=== PATIENT | male | born 1995 | race Caucasian/White ===

== ENCOUNTER 2021-04-21 14:06 | Emergency (ER) | payer BC, SELFPAY ==
--- NOTE | ~2021-04-21 | XR_ITS ---
EXAMINATION: XR chest 1V portable DATE: 04/21/2021 14:32 INDICATION: Cough and shortness of breath TECHNIQUE: frontal view of the chest was obtained. COMPARISON: None FINDINGS: The lungs are clear with no focal airspace opacities, pulmonary edema, pleural effusion or pneumothor ax. The cardiomediastinal silhouette is normal. Visualized bones and soft tissues are unremarkable. IMPRESSION: 1. No acute cardiopulmonary disease. Reviewed, dictated and finalized at location [facility]. [facility]
[2021-04-21 14:09] VITALS: BP 134/76; PULSE 78; RESP 18; TEMP 37.1; O2SAT 100
[2021-04-21 14:31] LABS: Basophils Percent Auto 0.9 % (0.2-1.2); Eosinophils Percent Auto 0.5 % (0-4.4); Hematocrit 47.9 % (42.0-52.0); Hemoglobin 16.1 g/dL (14.0-18.0); Immature Granulocyte Absolute 0.02 K/mm3 (0.00-0.031); Immature Granulocyte Percent A 0.5 % (0-0.5); Lymphocytes Absolute Auto 0.85 K/mm3 (0.9-3.2); Lymphocytes Percent Auto 20.1 % (18.3-44.2); Mean Corpuscular HGB Conc 33.6 g/dl (32-36); Mean Corpuscular Hemoglobin 30.4 pg (26-34); Mean Corpuscular Volume 90.5 fl (80-100); Mean Platelet Volume 9.7 fl (7.4-10.4); Neutrophils Absolute Auto 2.3 K/mm3 (1.3-6.7); Platelet Count Result 188 k/mm3 (150-375); Red Blood Count 5.29 M/mm3 (4.6-6.20); Red Cell Distribution Width 12.7 % (11.5-14.5); White Blood Count 4.2 K/mm3 (4.5-10.0)
--- NOTE | 2021-04-21 15:44 | ED.GENADULT ---
HPI - General Adult General Chief complaint: Upper Respiratory Infection Stated complaint: Sore throat, bodyaches Time Seen by Provider: 04/21/21 14:15 Source: patient Mode of arrival: ambulatory Limitations: no limitations History of Present Illness HPI narrative: 25-year-old male Patient complains of a 1 day history of diarrhea, body aches, fatigue, cough with scanty phlegm production He has taken his temperature several times but never had a fever No abdominal pain, no urinary complaints He has not had a Covid vaccine and he is not completely sure but thinks he might of had a flu vaccine in January Related Data Allergies Allergy/AdvReac Type Severity Reaction Status Date / Time nickel Allergy Rash Verified 04/21/21 14:13 Review of Systems Review of Systems: All systems reviewed & are unremarkable except as noted in HPI and below Constitutional: Constitutional: Reports no additional constitutional complaints, Reports chills, Reports fatigue, Denies fever(s), Denies headache(s) and Reports weakness Eyes: Eyes: Reports no additional eye complaints and Denies change in vision ENT: Denies headache(s) and Reports nasal congestion Cardiovascular: Cardiovascular: Denies chest pain and Denies dyspnea Respiratory: Respiratory: Reports cough and Denies dyspnea Gastrointestinal: Gastrointestinal: Denies abdominal pain, Reports diarrhea, Reports nausea and Denies vomiting Genitourinary: Genitourinary: Denies dysuria and Denies urinary frequency Musculoskeletal: Musculoskeletal: Reports back pain, Reports myalgias, Denies deformity, Denies arthralgias, Denies joint swelling and Denies numbness Integumentary/Breasts: Skin/Breast: Denies rash and Denies wounds Neurologic: Denies headache(s), Denies focal weakness and Denies numbness Psychiatric: Psychiatric: Reports no additional psychiatric complaints Endocrine: Endocrine: Reports no additional endocrine complaints Hematologic/Lymphatic: Hematologic/Lymphatic: Reports no additional hematologic/lymphatic complaints Allergic/Immunologic: Allergic/Immunologic: Reports no additional allergic/immunologic complaints Exam Const: General: cooperative, no acute distress and alert Orientation/consciousness: patient oriented x3 (alert) HENMT: Head: normal to inspection, normocephalic and atraumatic Ears: external ears normal General nose exam: no epistaxis Eyes: Conjunctivae: conjunctivae normal EOM: EOMs intact bilaterally Neck: Neck: normal visual inspection, no lymphadenopathy, supple and no JVD Resp: Effort & Inspection: normal respiratory effort and not labored Auscultation: clear to auscultation bilaterally and other (BS =) Cardio: Rate: regular rate Rhythm: regular rhythm Heart sounds: no murmurs GI: GI Palp: Yes Soft to palpation, No Tenderness to palpation present (GI) and No Guarding due to palpation present (GI) Skin: General skin exam: normal color and no rashes or lesions noted Neuro: General: patient oriented x3 (alert) and moves all extremities Speech: normal speech Extrem: General: normal to inspection and no pedal edema Psych: Affect: normal affect Course Vital Signs Vital signs: Vital Signs Temperature 37.1 C 04/21/21 14:09 Pulse Rate 78 04/21/21 14:09 Respiratory Rate 18 04/21/21 14:09 Blood Pressure 134/76 04/21/21 14:09 Pulse Oximetry 100 04/21/21 14:09 Temperature 37.1 C 04/21/21 14:09 Pulse Rate 78 04/21/21 14:09 Respiratory Rate 18 04/21/21 14:09 Blood Pressure 134/76 04/21/21 14:09 Pulse Oximetry 100 04/21/21 14:09 Medical Decision Making Vital Signs Vital Signs: Vital Signs Temperature 37.1 C 04/21/21 14:09 Pulse Rate 78 04/21/21 14:09 Respiratory Rate 18 04/21/21 14:09 Blood Pressure 134/76 04/21/21 14:09 Pulse Oximetry 100 04/21/21 14:09 Temperature 37.1 C 04/21/21 14:09 Pulse Rate 78 04/21/21 14:09 Respiratory Rate 18 04/21/21 14:09 Blood P
[2021-04-21 16:07] VITALS: BP 131/80; PULSE 84; RESP 18; O2SAT 100
[2021-04-22 08:05] LABS: SARS-CoV-2 RNA PCR Positive
== END 2021-04-21 16:10 | disposition home or self-care (01) ==
PROVIDERS: Emergency Provider Emergency Medicine; PCP Internal Medicine
DX: U07.1 COVID-19 (principal)
CPT/HCPCS: 36415; 71045; 85025; 99283; C9803; U0003; U0005

== ENCOUNTER 2021-04-22 23:15 | Emergency (ER) | payer BC, SELFPAY ==
[2021-04-22 23:32] VITALS: BP 147/74; PULSE 67; RESP 18; TEMP 36.4; O2SAT 99
--- NOTE | 2021-04-23 00:15 | ED.GENADULT ---
HPI - General Adult General Chief complaint: Nausea/Vomiting/Diarrhea Stated complaint: COVID+, N/V/D Time Seen by Provider: 04/22/21 23:42 Source: patient and RN notes reviewed Limitations: no limitations History of Present Illness HPI narrative: 25-year-old male presented emerge department for evaluation after a recent Covid diagnosis. Patient states he is having nausea and decreased p.o. intake. Patient was evaluated in the emergency department recently for this but was unable to get his Zofran filled. Patient presents to the emerge department complaining of similar symptoms. On arrival to emergency room patient appears to be in no distress. Patient does complain of headache and nausea. Related Data Allergies Allergy/AdvReac Type Severity Reaction Status Date / Time nickel Allergy Rash Verified 04/21/21 14:13 Review of Systems Review of Systems: CONSTITUTIONAL: Denies fever, chills, or sweats. EYES: Denies visual changes, redness, or discharge. ENT: Denies rhinorrhea, congestion, sore throat, or otalgia. CARDIOVASCULAR: Denies chest pain, palpitations, or edema. RESPIRATORY: Denies cough or dyspnea. GASTROINTESTINAL: Denies abdominal pain but does report some nausea and decreased p.o. intake GENITOURINARY: Denies dysuria or hematuria. SKIN: Denies rash or itching. MUSCULOSKELETAL: Denies back pain, joint pain, or myalgia. NEUROLOGIC: Mild headache but denies any associated numbness or weakness. All systems reviewed & are unremarkable except as noted in HPI and below Exam Narrative: APPEARANCE: Well appearing, no pain, no distress, well-nourished. HEAD: normocephalic, atraumatic. EYES: PERRLA/EOMI, conjunctivae clear. NOSE: Normal no drainage NECK: Supple. No adenopathy, no masses. RESPIRATORY: Airway patent, respirations nonlabored. Clear to auscultation bilaterally, no rales, rhonchi, wheezing. CARDIOVASCULAR: Regular rate and rhythm without murmurs rubs or gallops. ABDOMINAL: Soft, nontender, nondistended, normal bowel sounds MUSCULOSKELETAL: Moves all extremities. Strength/ROM intact, No edema, No calf tenderness. NEURO: Alert. Cranial nerves II through XII intact. SKIN: Warm, dry. Normal Color Course Course Emergency Course: Patient's headache was treated with ibuprofen. Patient was provided additional Zofran for nausea control. Patient was well-appearing in no distress at time of discharge from respiratory. Vital Signs Vital signs: Vital Signs Temperature 97.6 F 04/22/21 23:32 Pulse Rate 67 04/22/21 23:32 Respiratory Rate 18 04/22/21 23:32 Blood Pressure 147/74 H 04/22/21 23:32 Pulse Oximetry 99 04/22/21 23:32 Temperature 97.6 F 04/22/21 23:32 Pulse Rate 63 04/23/21 00:27 Respiratory Rate 14 04/23/21 00:27 Blood Pressure 131/74 04/23/21 00:27 Pulse Oximetry 98 04/23/21 00:27 Medical Decision Making Vital Signs Vital Signs: Vital Signs Temperature 97.6 F 04/22/21 23:32 Pulse Rate 67 04/22/21 23:32 Respiratory Rate 18 04/22/21 23:32 Blood Pressure 147/74 H 04/22/21 23:32 Pulse Oximetry 99 04/22/21 23:32 Temperature 97.6 F 04/22/21 23:32 Pulse Rate 63 04/23/21 00:27 Respiratory Rate 14 04/23/21 00:27 Blood Pressure 131/74 04/23/21 00:27 Pulse Oximetry 98 04/23/21 00:27 Discharge Plan Discharge Clinical Impression: COVID N&V (nausea and vomiting) Qualifiers: Vomiting type: unspecified Qualified Code(s): R11.2 - Nausea with vomiting, unspecified Patient Disposition: Home, Self-Care Condition: Stable Instructions: Antibiotic Form, Acute Nausea and Vomiting (ED), COVID-19 (Coronavirus Disease 2019) (ED) Additional Instructions: Tylenol and ibuprofen for fever body aches. Zofran as needed for nausea control. Clear liquid diet for 1 to 2 days and advance as tolerated. Have close follow-up with your primary care physician. Prescriptions: New ondansetron 4 mg tablet,disintegrating 4 mg PO Q6H PRN (Reason: nausea
[2021-04-23 00:27] VITALS: BP 131/74; PULSE 63; RESP 14; O2SAT 98
[2021-04-23] MEDS: IBUPROFEN 400 MG TABLET PO (00:28)
== END 2021-04-23 00:32 | disposition home or self-care (01) ==
PROVIDERS: Emergency Provider Emergency Medicine; PCP Internal Medicine
DX: U07.1 COVID-19 (principal); R11.2 Nausea with vomiting, unspecified
CPT/HCPCS: 99283; A9270